=== PATIENT | female | born 1995 ===

== ENCOUNTER 2016-07-04 19:58 | Emergency (ER) | payer OTHER ==
[2016-07-04] MEDS ORDERED: Phenazopyridine TAB* 100 MG PO ONE (21:02)
[2016-07-04] MEDS ORDERED: Sulfamethox/Trimethoprim DS 800/160* TAB PO ONE (21:02)
--- NOTE | 2016-07-04 21:03 | UC ---
Complaint Female HPI - HPI Summary HPI Summary: ONSET OF DYSURIA AND URINARY FREQUENCY TODAY AFTER GOING ON A LONG HIKE. NO FEVER, NAUSEA OR BACK PAIN. - History Of Current Complaint Chief Complaint: UCGU Stated Complaint: UTI COMPLAINT Time Seen by Provider: 07/04/16 20:51 Hx Obtained From: Patient Hx Last Menstrual Period: 3 wks ago Onset/Duration: Gradual Onset, Lasting Hours, Still Present Timing: Constant Severity Initially: Moderate Severity Currently: Moderate Pain Intensity: 0 - PAIN ONLY WHEN URINATING Pain Scale Used: 0-10 Numeric Character: Burning Aggravating Factor(s): Urination Alleviating Factor(s): Nothing Associated Signs And Symptoms: Positive: Negative - Allergies/Home Medications Allergies/Adverse Reactions: Allergies Allergy/AdvReac Type Severity Reaction Status Date / Time Amoxicillin Allergy Rash Verified 07/04/16 20:18 PMH/Surg Hx/FS Hx/Imm Hx Previously Healthy: Yes - Surgical History Surgical History: None - Family History Known Family History: Positive: Unknown - PT NOT SURE ABOUT HER FAMILY HISTORY - Social History Alcohol Use: Occasionally Substance Use Type: None Smoking Status (MU): Never Smoked Tobacco Review of Systems Constitutional: Negative Respiratory: Negative Cardiovascular: Negative Gastrointestinal: Abdominal Pain Genitourinary: Dysuria, Frequency, Urgency All Other Systems Reviewed And Are Negative: Yes Physical Exam Triage Information Reviewed: Yes Appearance: Well-Appearing, No Pain Distress, Well-Nourished Vital Signs: Initial Vital Signs Temp 98.8 F 07/04/16 20:13 Pulse 87 07/04/16 20:13 Resp 18 07/04/16 20:13 BP 138/82 07/04/16 20:13 Pulse Ox 100 07/04/16 20:13 Vital Signs Reviewed: Yes Eyes: Positive: Conjunctiva Clear ENT: Positive: Hearing grossly normal Neck: Positive: Supple Respiratory: Positive: No respiratory distress, No accessory muscle use Cardiovascular: Positive: Pulses Normal Abdomen Description: Positive: Nontender, Soft. Negative: CVA Tenderness (R), CVA Tenderness (L), Distended, Guarding Musculoskeletal: Positive: No Edema Neurological: Positive: Alert Psychological: Positive: Age Appropriate Behavior Skin: Negative: rashes Diagnostics - Laboratory Diagnostic Studies Completed/Ordered: URINE DIP SP.GR. 1.005, 3+LEUKS, 3+BLOOD Complaint Female Dx - Differential Dx/Diagnosis Provider Diagnoses: UTI Discharge - Discharge Plan Condition: Stable Disposition: HOME Prescriptions: Phenazopyridine TAB* [Pyridium TAB*] 200 mg PO TID #6 tab Sulfamethox/Trimethoprim DS* [Bactrim DS 800/160 TAB*] 1 tab PO BID #9 tab Patient Education Materials: Urinary Tract Infection in Women (ED) Referrals: [facility] [Medical Doctor] - If Needed
== END 2016-07-04 21:14 | disposition home or self-care (01) ==
LOC: UCEAST 19:58
DX: N39.0 Urinary tract infection, site not specified (principal); Z88.3 Allergy status to other anti-infective agents
CPT/HCPCS: 81003; 87077; 87086; 87186; 99202; A9270-GY; G0463

== ENCOUNTER 2018-03-30 01:50 | Emergency (ER) | payer BC, OTHER ==
[2018-03-30] MEDS ORDERED: Codeine TAB* 30 MG PO ONE (02:24)
[2018-03-30] MEDS ORDERED: ALPRAZolam TAB* 0.5 MG PO ONE (02:24)
--- NOTE | 2018-03-30 02:31 | ED ---
Palpitations / Dysrhythmia - HPI Summary HPI Summary: Pt is a 23 y/o F presenting to the ED with a chief complaint of heart palpitations. She took Nyquil around 2230 to help her sleep because she has a cold, but it made her heart pound hard and she couldnt fall asleep. She took the recommended dose and does not have a hx of anxiety or asthma. - History of Current Complaint Chief Complaint: EDDysrhythmPalp Time Seen by Provider: 03/30/18 02:15 Hx Obtained From: Patient Onset/Duration: Sudden Onset, Lasting Hours, Still Present Timing: Constant Severity Initially: Moderate Severity Currently: Moderate Character: Pounding Aggravating: Medication - nyquil Alleviating: Nothing Associated Signs & Symptoms: Negative - Allergy/Home Medications Allergies/Adverse Reactions: Allergies Allergy/AdvReac Type Severity Reaction Status Date / Time Amoxicillin [Amoxicillin] Allergy Rash Verified 03/30/18 01:57 PMH/Surg Hx/FS Hx/Imm Hx Previously Healthy: Yes Endocrine/Hematology History: Denies: Hx Diabetes Cardiovascular History: Denies: Hx Hypertension Respiratory History: Denies: Hx Asthma Psychiatric History: Denies: Hx Anxiety Infectious Disease History: No Infectious Disease History: Denies: Traveled Outside the [place] in Last 30 Days - Family History Known Family History: Negative: Renal Disease - Social History Alcohol Use: Occasionally Substance Use Type: Reports: None Smoking Status (MU): Never Smoked Tobacco Review of Systems Negative: Fever Positive: Nasal Discharge Positive: Palpitations Positive: Cough All Other Systems Reviewed And Are Negative: Yes Physical Exam - Summary Physical Exam Summary: VITAL SIGNS: Reviewed. GENERAL: Patient is a well-developed and nourished female who is lying comfortable in the stretcher. Patient is not in any acute respiratory distress. HEAD AND FACE: No signs of trauma. No ecchymosis, hematomas or skull depressions. No sinus tenderness. EYES: PERRLA, EOMI x 2, No injected conjunctiva, no nystagmus. EARS: Hearing grossly intact. Ear canals and tympanic membranes are within normal limits. MOUTH: Oropharynx within normal limits. NECK: Supple, trachea is midline, no adenopathy, no JVD, no carotid bruit, no c- spine tenderness, neck with full ROM. CHEST: Symmetric, no tenderness at palpation LUNGS: Clear to auscultation bilaterally. No wheezing or crackles. CVS: Regular rate and rhythm, S1 and S2 present, no murmurs or gallops appreciated. ABDOMEN: Soft, non-tender. No signs of distention. No rebound no guarding, and no masses palpated. Bowel sounds are normal. EXTREMITIES: FROM in all major joints, no edema, no cyanosis or clubbing. NEURO: Alert and oriented x 3. No acute neurological deficits. Speech is normal and follows commands. SKIN: Dry and warm Triage Information Reviewed: Yes Vital Signs On Initial Exam: Initial Vitals Temp Pulse Resp BP Pulse Ox 98.6 F 78 16 124/68 97 03/30/18 01:50 03/30/18 01:50 03/30/18 01:50 03/30/18 01:50 03/30/18 01:50 Vital Signs Reviewed: Yes Diagnostics - Vital Signs Vital Signs Temp Pulse Resp BP Pulse Ox 03/30/18 01:50 98.6 F 78 16 124/68 97 - Laboratory Lab Statement: Any lab studies that have been ordered have been reviewed, and results considered in the medical decision making process. - EKG 0159 Cardiac Rate: NL - 68bpm EKG Rhythm: Sinus Rhythm ST Segment: Normal Ectopy: None Course/Dx - Course Course Of Treatment: Pt is a 23 y/o F presenting to the ED with a chief complaint of heart palpitations. She took Nyquil around 2230 to help her sleep because she has a cold, but it made her heart pound hard and she couldnt fall asleep. Pt will be given a cough suppressant in the ED. - Diagnoses Provider Diagnoses: Heart palpitations, Anxiety Discharge - Sign-Out/Discharge Documenting (check all that apply): Patient Departure Patient Received Moderate/Deep Sedation with Procedure: No - Discharge Plan Condition: Stable Disposition: HOME Prescriptions: Codeine TAB* [Codeine Tab*] 30 mg PO Q6H PRN #14 tab MDD 4 PRN Reason: Cough Referrals: [facility] [place] [facility] [Outside] Additional Instructions: PLEASE FOLLOW UP WITH YOUR PCP IN THE NEXT 1-2 DAYS. RETURN TO THE ED WITH ANY NEW OR WORSENING SYMPTOMS. - Billing Disposition and Condition Condition: STABLE Disposition: Home - Attestation Statements Document Initiated by Scribe: Yes Documenting Scribe: Yanet Vargas Provider For Whom Scribe is Documenting (Include Credential): Zahraa Thurman MD. Scribe Attestation: I, Yanet Vargas, scribed for Zahraa Thurman MD. on 03/30/18 at 2020. Scribe Documentation Reviewed: Yes Provider Attestation: The documentation as recorded by the scribe, Yanet Vargas accurately reflects the service I personally performed and the decisions made by me, Zahraa Thurman MD. Status of Scribe Document: Viewed
== END 2018-03-30 03:47 | disposition home or self-care (01) ==
LOC: ED 01:50
DX: R00.2 Palpitations (principal); F41.9 Anxiety disorder, unspecified; R09.81 Nasal congestion; R05 Cough; Z88.0 Allergy status to penicillin
CPT/HCPCS: 93005; 99282; A9270-GY